=== PATIENT | male | born 1960 | race Caucasian/White ===

== ENCOUNTER 2016-07-19 02:20 | Inpatient (IN) | payer MEDICARE ==
[~2016-07-19] VITALS: Ht 185.4 cm; Wt 91.5 kg
[2016-07-19] MEDS ORDERED: DUONEB INH ONE ×2 (03:15)
[2016-07-19] MEDS ORDERED: CEFTRIAXONE 1 GM VIAL ONE (04:20)
[2016-07-19] MEDS ORDERED: SODIUM CHLORIDE 0.9% 100 ML IV ONE (04:21)
[2016-07-19] MEDS: DUONEB INH SCH ×5 (07:47→23:00)
[2016-07-19 07:48] VITALS: RESP 20
[2016-07-19] MEDS: FAMOTIDINE 20 MG TAB PO SCH ×2 (08:29→20:06)
[2016-07-19] MEDS: AZITHROMYCIN 500 MG in SODIUM CHLORIDE 0.9% 250 ML IV SCH (08:29)
[2016-07-19] MEDS: METHYLPRED SOD SUCC 125 MG/2 ML VIAL IV SCH ×2 (08:29→16:07)
[2016-07-19 08:30] VITALS: Ht 185.4 cm; Wt 91.5 kg
[2016-07-19 08:31] VITALS: BP_SYST 104; BP_SYST 118; RESP 20
[2016-07-19] MEDS: Methimazole 5 MG TAB PO SCH (09:31)
[2016-07-19] MEDS: OSELTAMIVIR 75 MG CAP PO SCH ×2 (09:31→20:06)
[2016-07-19 10:56] VITALS: BP_SYST 114; RESP 20; TEMP 97.5
[2016-07-19] MEDS: METOPROLOL XL 50 MG TAB PO SCH (12:58)
[2016-07-19] MEDS: METHADONE 10 MG TAB PO SCH (13:00)
[2016-07-19 16:15] VITALS: BP_SYST 138; RESP 18; TEMP 98.5
[2016-07-19 19:47] VITALS: BP_SYST 122; RESP 20; TEMP 98
[2016-07-19] MEDS: ONDANSETRON 4 MG TAB PO PRN ×2 (23:07→23:09)
[2016-07-19 23:50] VITALS: BP_SYST 110; RESP 18; TEMP 97.8
[2016-07-20] VITALS (7 sets, daily range): BP systolic 112–122; RESP 18–20; TEMP 95.5–98.6
[2016-07-20] MEDS: METHYLPRED SOD SUCC 125 MG/2 ML VIAL IV SCH ×4 (00:36→23:13)
[2016-07-20] MEDS: DUONEB INH SCH ×6 (02:34→22:50)
[2016-07-20] MEDS ORDERED: SALINE FLUSH 10 ML FLUSH PRN (07:15)
[2016-07-20] MEDS: CEFTRIAXONE 1 GM in SODIUM CHLORIDE 0.9% 50 ML IV SCH (08:04)
[2016-07-20] MEDS: SALINE FLUSH 10 ML FLUSH SCH ×2 (08:04→21:02)
[2016-07-20] MEDS: METHADONE 10 MG TAB PO SCH (08:05)
[2016-07-20] MEDS: METOPROLOL XL 50 MG TAB PO SCH (08:06)
[2016-07-20] MEDS: OSELTAMIVIR 75 MG CAP PO SCH ×2 (08:06→21:01)
[2016-07-20] MEDS: Methimazole 5 MG TAB PO SCH (08:06)
[2016-07-20] MEDS: FAMOTIDINE 20 MG TAB PO SCH ×2 (08:06→21:01)
[2016-07-20] MEDS: AZITHROMYCIN 500 MG in SODIUM CHLORIDE 0.9% 250 ML IV SCH (09:13)
[2016-07-20] MEDS: ONDANSETRON 4 MG TAB PO PRN ×2 (11:28→23:12)
[2016-07-21] MEDS: DUONEB INH SCH ×6 (02:58→22:58)
[2016-07-21 03:47] VITALS: BP_SYST 110; RESP 18; TEMP 97.2
[2016-07-21] MEDS: SODIUM CHLORIDE 0.9% FLUSH BAG 500 ML IV SCH (06:29)
[2016-07-21 08:00] VITALS: BP_SYST 110; RESP 18; TEMP 96.2
[2016-07-21] MEDS: CEFTRIAXONE 1 GM in SODIUM CHLORIDE 0.9% 50 ML IV SCH (08:12)
[2016-07-21] MEDS: SALINE FLUSH 10 ML FLUSH SCH ×2 (08:12→21:00)
[2016-07-21] MEDS: METHYLPRED SOD SUCC 40 MG VIAL IV SCH ×2 (08:12→15:30)
[2016-07-21] MEDS: FAMOTIDINE 20 MG TAB PO SCH ×2 (08:13→20:59)
[2016-07-21] MEDS: Methimazole 5 MG TAB PO SCH (08:13)
[2016-07-21] MEDS: METHADONE 10 MG TAB PO SCH (08:13)
[2016-07-21] MEDS: OSELTAMIVIR 75 MG CAP PO SCH ×2 (08:13→20:59)
[2016-07-21] MEDS: METOPROLOL XL 50 MG TAB PO SCH (08:14)
[2016-07-21] MEDS: AZITHROMYCIN 500 MG in SODIUM CHLORIDE 0.9% 250 ML IV SCH (09:55)
[2016-07-21 11:47] VITALS: BP_SYST 130; RESP 18; TEMP 96.5
[2016-07-21] MEDS ORDERED: MISSING DOSE XX ONE (13:10)
[2016-07-21 15:23] VITALS: BP_SYST 126; RESP 18; TEMP 96.3
[2016-07-21 20:11] VITALS: BP_SYST 122; RESP 18; TEMP 96.3
[2016-07-21 23:53] VITALS: BP_SYST 122; RESP 18; TEMP 96.1
[2016-07-22] MEDS: METHYLPRED SOD SUCC 40 MG VIAL IV SCH ×4 (00:06→23:32)
[2016-07-22] MEDS: DUONEB INH SCH ×6 (02:46→23:45)
[2016-07-22 04:59] VITALS: BP_SYST 132; RESP 18; TEMP 97.1
[2016-07-22] MEDS: SODIUM CHLORIDE 0.9% FLUSH BAG 500 ML IV SCH (06:04)
[2016-07-22] MEDS ORDERED: KCL CR 20 MEQ TAB PO ONE (06:50)
[2016-07-22 08:14] VITALS: BP_SYST 104; RESP 20; TEMP 96.4
[2016-07-22] MEDS: OSELTAMIVIR 75 MG CAP PO SCH ×2 (09:40→20:03)
[2016-07-22] MEDS: FAMOTIDINE 20 MG TAB PO SCH ×2 (09:40→20:03)
[2016-07-22] MEDS: Methimazole 5 MG TAB PO SCH (09:40)
[2016-07-22] MEDS: METOPROLOL XL 50 MG TAB PO SCH (09:40)
[2016-07-22] MEDS: METHADONE 10 MG TAB PO SCH (09:41)
[2016-07-22] MEDS: SALINE FLUSH 10 ML FLUSH SCH ×2 (09:42→20:03)
[2016-07-22] MEDS: CEFTRIAXONE 1 GM in SODIUM CHLORIDE 0.9% 50 ML IV SCH (09:43)
[2016-07-22] MEDS ORDERED: MISSING DOSE XX ONE (11:20)
[2016-07-22] MEDS: ONDANSETRON 4 MG TAB PO PRN (11:56)
[2016-07-22 12:52] VITALS: BP_SYST 108; RESP 20; TEMP 97.4
[2016-07-22 16:53] VITALS: BP_SYST 118; RESP 20; TEMP 96.4
[2016-07-22 19:25] VITALS: BP_SYST 112; RESP 18; TEMP 96.8
[2016-07-22 23:00] VITALS: BP_SYST 118; RESP 18; TEMP 95.4
[2016-07-23] MEDS: DUONEB INH SCH ×6 (02:56→22:53)
[2016-07-23 04:45] VITALS: BP_SYST 120; RESP 20; TEMP 95.4
[2016-07-23] MEDS: SODIUM CHLORIDE 0.9% FLUSH BAG 500 ML IV SCH (06:46)
[2016-07-23 07:30] VITALS: BP_SYST 118; RESP 14; TEMP 95.7
[2016-07-23] MEDS: SALINE FLUSH 10 ML FLUSH SCH ×2 (08:32→22:01)
[2016-07-23] MEDS: METHYLPRED SOD SUCC 40 MG VIAL IV SCH ×2 (08:32→16:13)
[2016-07-23] MEDS: Methimazole 5 MG TAB PO SCH (08:33)
[2016-07-23] MEDS: METOPROLOL XL 50 MG TAB PO SCH (08:34)
[2016-07-23] MEDS: OSELTAMIVIR 75 MG CAP PO SCH ×2 (08:34→22:01)
[2016-07-23] MEDS: METHADONE 10 MG TAB PO SCH (08:34)
[2016-07-23] MEDS: FAMOTIDINE 20 MG TAB PO SCH ×2 (08:34→22:01)
[2016-07-23] MEDS: CEFTRIAXONE 1 GM in SODIUM CHLORIDE 0.9% 50 ML IV SCH (10:20)
[2016-07-23 12:09] VITALS: BP_SYST 124; RESP 18; TEMP 94.9
[2016-07-23 15:15] VITALS: BP_SYST 124; RESP 18; TEMP 96.8
[2016-07-23 19:48] VITALS: BP_SYST 124; TEMP 96.5
[2016-07-23 23:27] VITALS: BP_SYST 130; RESP 20; TEMP 96.5
[2016-07-24] MEDS: METHYLPRED SOD SUCC 40 MG VIAL IV SCH (00:22)
[2016-07-24] MEDS: SODIUM CHLORIDE 0.9% FLUSH BAG 500 ML IV SCH (00:22)
[2016-07-24] MEDS: DUONEB INH SCH ×3 (03:06→10:16)
[2016-07-24 03:30] VITALS: BP_SYST 124; RESP 20; TEMP 96.3
[2016-07-24] MEDS ORDERED: METHYLPRED SOD SUCC 40 MG VIAL IV SCH (06:30)
[2016-07-24 07:34] VITALS: BP_SYST 118; RESP 20; TEMP 96.9
[2016-07-24] MEDS: SALINE FLUSH 10 ML FLUSH SCH (08:32)
[2016-07-24] MEDS: CEFTRIAXONE 1 GM in SODIUM CHLORIDE 0.9% 50 ML IV SCH (08:32)
[2016-07-24] MEDS: METOPROLOL XL 50 MG TAB PO SCH (08:34)
[2016-07-24] MEDS: FAMOTIDINE 20 MG TAB PO SCH (08:34)
[2016-07-24] MEDS: METHADONE 10 MG TAB PO SCH (08:34)
[2016-07-24] MEDS: Methimazole 5 MG TAB PO SCH (08:34)
[2016-07-24 10:18] VITALS: BP_SYST 118; RESP 20; TEMP 96.9
[2016-07-24 10:20] VITALS: BP_SYST 130; RESP 20; TEMP 97.9
[2016-07-24 10:26] VITALS: BP_SYST 130; RESP 20; TEMP 97.9
== END 2016-07-24 10:55 | disposition home or self-care (01) | DRG 190 ==
LOC: ENRESERVDT → ENRESERVTM → ER 02:20 → ENPENDDIS 05:41 → EMR 05:41 → 4NT 07:01
PROVIDERS: ADMIT Internal Medicine; ATTEND Internal Medicine
DX: J44.0 Chronic obstructive pulmonary disease with (acute) lower respiratory infection (principal); J15.4 Pneumonia due to other streptococci; J44.1 Chronic obstructive pulmonary disease with (acute) exacerbation; Z87.891 Personal history of nicotine dependence; E05.90 Thyrotoxicosis, unspecified without thyrotoxic crisis or storm; F32.9 Major depressive disorder, single episode, unspecified; J11.1 Influenza due to unidentified influenza virus with other respiratory manifestations; D64.9 Anemia, unspecified; M54.5 Low back pain
CPT/HCPCS: 36415; 36600; 71010; 71020; 80053; 81003; 82553; 82803; 83605; 83880; 84132; 84439; 84443; 84484; 85025; 86738; 87040; 87071; 87077; 87088; 87186; 87205; 87278; 87299; 87804; 93005; 94640; 94799; 96365